=== PATIENT | female | born 1945 | race Caucasian/White ===

== ENCOUNTER 2019-08-20 06:48 | Inpatient (IN) ==
[2019-08-20] MEDS ORDERED: Aspirin 81 MG TAB.CHEW PO ONE (06:49)
[2019-08-20] MEDS: Nitroglycerin 0.4 MG TAB.SUBL SL STA ×2 (07:04→08:12)
[2019-08-20 07:14] LABS: INR 0.9; Prothrombin Time 9.7 Seconds (9.4-12.1)
[2019-08-20 07:17] LABS: Activated Partial Thrombo Time 26.2 Seconds (26.0-36.0)
[2019-08-20 07:26] LABS: Basophils # 0.1 K/mcL (0.0-0.2); Basophils % 0.5 %; Eosinophils # 0.2 K/mcL (0.0-0.6); Eosinophils % 2.3 %; Hematocrit 43.9 % (35.3-44.9); Hemoglobin 14.1 g/dL (11.5-15.4); Immature Granulocytes % 0.2 % (0-4); Immature Platelets 3.1 % (1.1-6.1); Lymphocytes # 3.5 K/mcL (0.6-4.6); Mean Corpuscular HGB Conc 32.1 g/dL (31.6-35.5); Mean Corpuscular Hemoglobin 27.6 pg (28.0-33.3); Mean Corpuscular Volume 86.1 fL (83.0-100.0); Mean Platelet Volume 9.9 fL (9.4-12.4); Monocytes # 0.8 K/mcL (0.0-1.3); Monocytes % 8.1 %; Neutrophils # 5.3 K/mcL (1.6-8.9); Platelet Count 283 K/mcL (140-400); Red Cell Distribution Width 14.1 % (11.5-14.5); Segmented Neutrophils % 53.9 %; White Blood Count 9.9 K/mcL (4.3-11.1)
[2019-08-20 07:31] LABS: BUN/Creatinine Ratio 20 (6-26); Blood Urea Nitrogen 17 mg/dL (8-23); Calcium 9.6 mg/dL (8.6-10.3); Carbon Dioxide 25 mEq/L (23-29); Chloride 107 mEq/L (98-107); Glucose 92 mg/dL (70-105); Osmolality,Calculated 283 (280-300); Potassium 3.8 mEq/L (3.5-5.1); Sodium 136 mEq/L (136-145); eGFR For African Americans > 60 (> 60); eGFR For Non-African Americans > 60 (> 60)
[2019-08-20 07:33] LABS: Platelet Estimate Normal (Normal)
[2019-08-20 07:35] LABS: Troponin I 0.45 ng/mL (< 0.04)
[2019-08-20] MEDS ORDERED: *HR* Heparin 5,000 UNIT/ML VIAL IVP ONE (07:47)
[2019-08-20] MEDS ORDERED: *HR* Heparin 5,000 UNIT/ML VIAL IVP PRN ×2 (07:47)
[2019-08-20] MEDS ORDERED: Naloxone 0.4 MG/ML INJ IVP PRN (07:50)
[2019-08-20] MEDS ORDERED: Ondansetron 4 MG/2 ML VIAL IVP PRN (07:50)
[2019-08-20] MEDS ORDERED: Heparin 25,000 UNIT/250 ML D5W 25,000 UNIT/250 ML IV.SOLN IVC SCH (08:00)
[2019-08-20] MEDS: Aspirin 81 MG TAB.CHEW PO SCH (08:04)
[2019-08-20] MEDS: *HR* FentaNYL (PF) 100 MCG/2 ML VIAL IVP ONE ×2 (08:09→08:16)
[2019-08-20 08:28] LABS: Hematocrit 40.8 % (35.3-44.9); Hemoglobin 13.5 g/dL (11.5-15.4); Mean Corpuscular HGB Conc 33.1 g/dL (31.6-35.5); Mean Corpuscular Hemoglobin 28.6 pg (28.0-33.3); Mean Corpuscular Volume 86.4 fL (83.0-100.0); Mean Platelet Volume 9.9 fL (9.4-12.4); Platelet Count 272 K/mcL (140-400); Red Blood Count 4.72 M/mcL (3.82-4.97); Red Cell Distribution Width 14.2 % (11.5-14.5); White Blood Count 9.1 K/mcL (4.3-11.1)
[2019-08-20 08:38] LABS: Heparin anti-factor XA UFH 0.62 IU/mL (0.30-0.70)
[2019-08-20 08:39] LABS: INR 0.9; Prothrombin Time 9.9 Seconds (9.4-12.1)
[2019-08-20] MEDS ORDERED: *HR* FentaNYL (PF) 100 MCG/2 ML VIAL IVP ONE (09:45)
[2019-08-20] MEDS: Nitroglycerin 0.4 MG TAB.SUBL SL PRN ×2 (13:57→14:03)
[2019-08-20] MEDS: Acetaminophen 325 MG TABLET PO PRN (19:07)
[2019-08-21 02:58] LABS: Basophils # 0.1 K/mcL (0.0-0.2); Basophils % 0.6 %; Eosinophils # 0.2 K/mcL (0.0-0.6); Eosinophils % 2.2 %; Hematocrit 43.8 % (35.3-44.9); Hemoglobin 14.5 g/dL (11.5-15.4); Immature Granulocytes % 0.3 % (0-4); Lymphocytes # 3.6 K/mcL (0.6-4.6); Lymphocytes % 32.7 %; Mean Corpuscular HGB Conc 33.1 g/dL (31.6-35.5); Mean Corpuscular Hemoglobin 28.4 pg (28.0-33.3); Mean Corpuscular Volume 85.7 fL (83.0-100.0); Mean Platelet Volume 10.2 fL (9.4-12.4); Monocytes # 0.7 K/mcL (0.0-1.3); Monocytes % 6.8 %; Neutrophils # 6.2 K/mcL (1.6-8.9); Platelet Count 308 K/mcL (140-400); Red Blood Count 5.11 M/mcL (3.82-4.97); Red Cell Distribution Width 14.4 % (11.5-14.5); Segmented Neutrophils % 57.4 %; White Blood Count 10.9 K/mcL (4.3-11.1)
[2019-08-21 03:13] LABS: BUN/Creatinine Ratio 18 (6-26); Blood Urea Nitrogen 15 mg/dL (8-23); Calcium 9.5 mg/dL (8.6-10.3); Carbon Dioxide 28 mEq/L (23-29); Chloride 103 mEq/L (98-107); Chol/HDL Ratio 3.5 (0-4.9); Cholesterol 205 mg/dL (< 200); Glucose 87 mg/dL (70-105); HDL Cholesterol 58 mg/dL (40-59); LDL Cholesterol,Calculated 103 mg/dL (0-99); Osmolality,Calculated 290 (280-300); Potassium 3.6 mEq/L (3.5-5.1); Sodium 140 mEq/L (136-145); Triglycerides 220 mg/dL (< 150); eGFR For African Americans > 60 (> 60); eGFR For Non-African Americans > 60 (> 60)
[2019-08-21] MEDS ORDERED: *HR* Heparin 10,000 UNIT/10 ML VIAL ONE (07:34)
[2019-08-21] MEDS ORDERED: Nitroglycerin 1,000 MCG/10 ML VIAL IV ONE (07:34)
[2019-08-21] MEDS ORDERED: Heparin 1,000 UNITS/500 mL 500 ML ONE (07:34)
[2019-08-21] MEDS ORDERED: ISOVUE-370 200 ML INFUS..BTL ONE ×2 (07:34→07:35)
[2019-08-21] MEDS ORDERED: 0.9 % Sodium Chloride 1,000 ML ONE ×2 (07:34→07:35)
[2019-08-21] MEDS: Aspirin 81 MG TAB.CHEW PO SCH (07:43)
[2019-08-21] MEDS ORDERED: *HR* Midazolam HCl 2 MG/2 ML VIAL ONE ×2 (11:07→11:31)
[2019-08-21] MEDS ORDERED: *HR* FentaNYL (PF) 100 MCG/2 ML VIAL ONE ×2 (11:08→11:31)
[2019-08-21] MEDS ORDERED: Tirofiban 12.5 MG/250ML 12.5 MG/250 ML BAG ONE (11:49)
[2019-08-21] MEDS ORDERED: *HR* Ticagrelor 90 MG TABLET ONE (12:12)
[2019-08-21] MEDS: *HR* Heparin 5,000 UNIT/ML VIAL SQ SCH ×2 (15:42→21:12)
[2019-08-21] MEDS: Acetaminophen 325 MG TABLET PO PRN (15:45)
[2019-08-21] MEDS ORDERED: Tirofiban 12.5 MG/250ML 12.5 MG/250 ML BAG IVC SCH (16:30)
[2019-08-22] MEDS: *HR* Heparin 5,000 UNIT/ML VIAL SQ SCH ×3 (05:49→21:12)
[2019-08-22] MEDS: *HR* Ticagrelor 90 MG TABLET PO SCH ×2 (08:07→21:10)
[2019-08-22] MEDS: Aspirin 81 MG TAB.CHEW PO SCH (08:07)
[2019-08-22 15:21] LABS: Hematocrit 41.6 % (35.3-44.9); Hemoglobin 13.4 g/dL (11.5-15.4)
[2019-08-22] MEDS: Acetaminophen 325 MG TABLET PO PRN (19:47)
[2019-08-23] MEDS: *HR* Heparin 5,000 UNIT/ML VIAL SQ SCH (05:36)
[2019-08-23 07:32] VITALS: BP 135/85
[2019-08-23] MEDS: *HR* Ticagrelor 90 MG TABLET PO SCH (08:39)
[2019-08-23] MEDS: Aspirin 81 MG TAB.CHEW PO SCH (08:39)
== END 2019-08-23 09:26 | disposition home or self-care (01) | DRG 247 ==
LOC: EMEROOARM 06:48 → 2ANU 06:48
PROVIDERS: ADMIT Family Medicine; ATTEND Family Medicine